=== PATIENT | male | born 2000 | race Caucasian/White ===

== ENCOUNTER 2023-06-09 12:31 | Observation (INO) ==
[2023-06-09] MEDS: Lactated Ringers 1000 ml BAG 1,000 ML IV ONE (14:38)
[2023-06-09] MEDS: Piperacillin/Tazobac 3.375 BAG 3.375 GM/100 ML BAG IV ONE ×2 (14:38→23:40)
[2023-06-09] MEDS: Vancomycin 1,500 MG in NS 0.9% 250 ml 250 ML IVPB ONE ×2 (14:43→23:37)
[2023-06-09 14:45] LABS: ABS Eosinophils 0.2 10^3/uL (0.0-0.5); ABS Lymphocytes 1.9 10^3/uL (1.0-4.8); ABS Neutrophils 7.4 10^3/uL (1.5-7.6); ABS Nucleated RBC 0.01 10^3/ul; Eosinophil % 1.9 %; Hematocrit 45.1 % (38-53); Hemoglobin 15.7 g/dL (13.2-16.3); Lymphocyte % 17.9 %; Mean Corpuscular Hemoglobin 31.1 pg (27-33); Mean Corpuscular Hgb Conc 34.7 g/dL (31-36); Mean Corpuscular Volume 89.4 fL (80-97); Mean Platelet Volume 8.2 fL (7.5-11.2); Nucleated Red Blood Cells % 0.1 %/100WBC (0.0-0.8); Platelet Count 264 10^3/uL (150-450); Red Blood Count 5.04 10^6/uL (4.06-5.63); Red Cell Distribution Width 13.4 % (12-17); White Blood Count 10.6 10^3/uL (3.6-10.2)
[2023-06-09] MEDS: Ondansetron 4 mg VIAL 2 MG/ML 2 ml VIAL IV ONE (15:15)
[2023-06-09 15:18] LABS: Albumin 4.5 g/dL (3.2-5.2); Albumin/Globulin Ratio 1.8 (1-3); C Reactive Protein 22.01 mg/L (<8.01); Calcium 9.6 mg/dL (8.6-10.3); Creatinine, Serum 0.81 mg/dL (0.67-1.17); Globulin 2.5 g/dL (2-4); Potassium 4.6 mmol/L (3.5-5.0); Total Bilirubin 0.4 mg/dL (0.2-1.0); eGFR CKD-EPI 126.3 (>60)
[2023-06-09 17:28] LABS: Erythrocyte Sed Rate 19 mm/Hr (0-14)
[2023-06-09] MEDS ORDERED: Midazolam 5 mg/5 ml VIAL 1 mg/ml 5 ml VIAL (5 mg) ONE (19:05)
[2023-06-09] MEDS ORDERED: Dexmedetomidine 200 mcg/2 ml 2 ml VIAL (200 mcg) ONE (19:06)
[2023-06-09] MEDS ORDERED: KETAMINE HCL 10 MG/ML 20 ml VIAL (200 MG) ONE (19:06)
[2023-06-09] MEDS ORDERED: Lidocaine 1% w EPI 1:100,000 MDV 20 ML VIAL ONE (19:16)
[2023-06-09] MEDS ORDERED: Lactulose 30 ml UDC PO PRN (19:22)
[2023-06-09] MEDS ORDERED: Ondansetron 4 mg VIAL 2 MG/ML 2 ml VIAL IV PRN ×2 (19:22→20:06)
[2023-06-09] MEDS ORDERED: Ondansetron ODT 4 mg TAB 4 MG TAB PO PRN (19:22)
[2023-06-09] MEDS ORDERED: Magnesium Hydroxide LIQ 30 ML UDC PO PRN (19:22)
[2023-06-09] MEDS ORDERED: Lidocaine 2% PF 5 ML VIAL ONE (19:43)
[2023-06-09] MEDS ORDERED: Bupivacaine 0.5% SDV PF 30ML VIAL ONE (19:46)
[2023-06-09] MEDS ORDERED: fentaNYL 100 mcg/2 ml 50 MCG/ML VIAL ONE (19:51)
[2023-06-09] MEDS ORDERED: Vancomycin per Pharmacy 1 EA NOTE FOLLOW UP SCH (20:00)
[2023-06-09] MEDS ORDERED: Zosyn per Pharmacy NOTE FOLLOW UP SCH (20:00)
[2023-06-09] MEDS ORDERED: Acetaminophen IV 1 GM/100ML 1,000 MG/100 ML BAG IV ONE (20:01)
[2023-06-09] MEDS ORDERED: Ondansetron 4 mg VIAL 2 MG/ML 2 ml VIAL ONE (20:03)
[2023-06-09] MEDS ORDERED: Dexamethasone IV 4 MG/ML VIAL 1 ml VIAL ONE (20:03)
[2023-06-09] MEDS ORDERED: HYDROmorphone 1 MG/1 ML SYRINGE IV PRN (20:06)
[2023-06-09] MEDS ORDERED: fentaNYL 100 mcg/2 ml 50 MCG/ML VIAL IV PRN (20:06)
[2023-06-09] MEDS ORDERED: Naloxone 0.4 mg VIAL 0.4 mg/ml 1 ml VIAL IV PRN (20:06)
[2023-06-09] MEDS ORDERED: Phenylephrine 40 mcg/mL 10mL (400mcg) SYRINGE ONE (20:22)
[2023-06-09] MEDS ORDERED: Propofol 10 mg/ml 100 ML BTL 1,000 MG/100 ML BTL ONE (20:51)
[2023-06-09] MEDS: Lactated Ringers 1000 ml BAG 1,000 ML IV SCH (23:33)
[2023-06-09] MEDS: Magnesium Hydroxide LIQ 30 ML UDC PO SCH (23:45)
[2023-06-10] MEDS: ZOSYN 3.375 GM Q8H per EXTENDED INFUSION IV SCH (04:04)
[2023-06-10 05:41] VITALS: BP 117/57
[2023-06-10] MEDS: Vancomycin 1,250 MG in NS 0.9% 250 ml 250 ML IVPB SCH (05:53)
[2023-06-10 06:07] LABS: Hematocrit 39.6 % (38-53); Hemoglobin 13.6 g/dL (13.2-16.3); Platelet Count 231 10^3/uL (150-450)
[2023-06-10 06:51] LABS: Calcium 8.7 mg/dL (8.6-10.3); Creatinine, Serum 0.89 mg/dL (0.67-1.17); Potassium 4.6 mmol/L (3.5-5.0); eGFR CKD-EPI 122.7 (>60)
[2023-06-10] MEDS: Vitamin THERAPEUTIC TAB PO SCH (08:05)
[2023-06-10] MEDS: DALBAVANCIN HCL (NF) 500 MG/25 ML VIAL IVPB ONE (12:35)
[2023-06-10] MEDS: DALVANCE 1500 MG IV ONCE (for CrCl >/= 30 or regular HD) IVPB ONE (13:10)
[2023-06-11] MEDS ORDERED: Vancomycin Trough Check NOTE FOLLOW UP ONE (06:00)
== END 2023-06-10 14:00 | disposition left against medical advice (07) ==
LOC: ED 12:31 → SSU 18:35 → OR 18:51
PROVIDERS: ADMIT Orthopaedic Surgery Sports Medicine; ATTEND Orthopaedic Surgery Sports Medicine